=== PATIENT | female | born 1975 | race Caucasian/White ===

== ENCOUNTER 2020-07-03 16:24 | Emergency (ER) | payer OTHER ==
[~2020-07-03] VITALS: Ht 170.2 cm; Wt 63.5 kg
== END 2020-07-03 21:21 | disposition home or self-care (01) ==
LOC: ER 16:24
DX: K80.20 Calculus of gallbladder without cholecystitis without obstruction (principal)

== ENCOUNTER 2020-07-10 16:39 | Emergency (ER) | payer OTHER ==
[~2020-07-10] VITALS: Ht 170.2 cm; Wt 62.1 kg
== END 2020-07-10 23:28 | disposition home or self-care (01) ==
LOC: ER 16:39
DX: K29.00 Acute gastritis without bleeding (principal); K29.80 Duodenitis without bleeding; R10.33 Periumbilical pain